=== PATIENT | male | born 1960 | race American Indian/Alaskan Native ===

== ENCOUNTER 2017-03-16 13:34 | Inpatient (IN) | payer OTHER ==
--- NOTE | 2017-03-16 14:19 | C.PDOC ---
History Of Present Illness 56 year old male presents to the ED c/o feeling depressed with SI. Symptoms began after he lost his job 3 months ago, and he admits today he was evicted from his apartment. He denies specific plan, and was referred to ER by his bilingual medical receptionist. Patient denies any physical complaints. Time Seen by Provider: 03/16/17 14:01 Chief Complaint (Nursing): Psychiatric Evaluation History Per: Patient History/Exam Limitations: no limitations Onset/Duration Of Symptoms: Days Current Symptoms Are (Timing): Still Present Suicide/Self Injury Attempted (Context): None Modifying Factor(s): Alcohol Associated Symptoms: Depression, Suicidal Thoughts. denies: Suicidal Plan Recent travel outside of the [place]: No Additional History Per: Patient Past Medical History Reviewed: Historical Data, Nursing Documentation, Vital Signs Vital Signs: Last Vital Signs Temp 98.1 F 03/16/17 16:46 Pulse 73 03/16/17 16:46 Resp 16 03/16/17 16:46 BP 126/85 03/16/17 16:46 Pulse Ox 98 03/16/17 17:08 - Medical History PMH: No Chronic Diseases Surgical History: No Surg Hx Family History: States: No Known Family Hx - Social History Hx Alcohol Use: Yes Hx Substance Use: Yes - Immunization History Hx Tetanus Toxoid Vaccination: No Hx Influenza Vaccination: No Hx Pneumococcal Vaccination: No Review Of Systems Except As Marked, All Systems Reviewed And Found Negative. Constitutional: Negative for: Fever, Chills Cardiovascular: Negative for: Chest Pain, Palpitations Respiratory: Negative for: Shortness of Breath Gastrointestinal: Negative for: Nausea, Vomiting, Abdominal Pain, Diarrhea Psych: Positive for: Depression, Suicidal ideation Physical Exam - Physical Exam Appears: Well, Non-toxic, Other (Flat affect) Skin: Normal Color, Warm, Dry, No Rash Head: Atraumatic, Normacephalic Eye(s): bilateral: Normal Inspection Oral Mucosa: Moist Cardiovascular: Rhythm Regular Respiratory: Normal Breath Sounds, No Accessory Muscle Use, No Rales, No Rhonchi , No Wheezing Gastrointestinal/Abdominal: Normal Exam, Bowel Sounds, Soft, No Tenderness Neurological/Psych: Oriented x3 ED Course And Treatment - Laboratory Results Result Diagrams: 03/16/17 14:27 03/16/17 14:27 O2 Sat by Pulse Oximetry: 98 (On RA) Pulse Ox Interpretation: Normal Progress Note: Plan: -Blood work, UA, UDS ordered and reviewed. Patient placed on 1:1 observation. 16:00 - Patient medically cleared, pending crisis eval. 16:24- Patient accepted by Dr. Grace for psychiatric admission. Disposition - Disposition Disposition: HOSPITALIZED Disposition Time: 16:24 Condition: STABLE - Clinical Impression Clinical Impression: Alcohol-induced depressive disorder with moderate or severe use disorder - Scribe Statement The provider has reviewed the documentation as recorded by the Scribe Sam Mcguire All medical record entries made by the Scribe were at my direction and personally dictated by me. I have reviewed the chart and agree that the record accurately reflects my personal performance of the history, physical exam, medical decision making, and the department course for this patient. I have also personally directed, reviewed, and agree with the discharge instructions and disposition. Decision To Admit - Pt Status Changed To: Hospital Disposition Of: Inpatient - Admit Certification Admit to Inpatient:: After my assessment, the patient will require hospitalization for at least two midnights. This is because of the severity of symptoms shown, intensity of services needed, and/or the medical risk in this patient being treated as an outpatient. - InPatient: Physician Admission Certification: I certify that this patient requires 2 or more midnights of care for the following reason:: see notes - . Bed Request Type: Psychiatry Admitting Physician: Sandee Grace Patient Diagnosis: Alcohol-induced depressive disorder with moderate or severe use disorder
[2017-03-16 14:38] LABS: HEMATOCRIT 41.2 % (35.0-51.0); MEAN CELL VOLUME 89.7 fL (80.0-94.0); MEAN CORPUSCULAR HEMOGLOBIN 30.7 pg (27.0-31.0); MEAN CORPUSCULAR HGB CONC 34.2 g/dL (33.0-37.0); MEAN PLATELET VOLUME 9.8 fL (7.2-11.7); RED CELL DISTRIBUTION WIDTH 15.3 % (11.5-14.5); WHITE BLOOD COUNT 7.7 K/uL (4.8-10.8)
[2017-03-16 14:41] LABS: RBC URINE 2 /hpf (0-3); URINE BILIRUBIN NEGATIVE (NEGATIVE); URINE BLOOD NEGATIVE (NEGATIVE); URINE COLOR Amber (YELLOW); URINE GLUCOSE (UA) NORMAL (Normal); URINE KETONE TRACE mg/dL (NEGATIVE); URINE LEUKOCYTE ESTERASE NEG Leu/uL (Negative); URINE PROTEIN NEGATIVE (NEGATIVE); WBC URINE 3 /hpf (0-5)
[2017-03-16 14:45] LABS: CHLORIDE 101 mmol/L (98-107)
[2017-03-16 14:46] LABS: POTASSIUM 3.5 mmol/L (3.6-5.2); SODIUM 132 mmol/L (132-148)
[2017-03-16 14:48] LABS: ALB/GLOB RATIO 0.8 (1.0-2.1); AST/SGOT 121 U/L (17-59); BILIRUBIN,TOTAL 1.8 mg/dL (0.2-1.3); BLOOD UREA NITROGEN 17 mg/dL (9-20); CARBON DIOXIDE 18 mmol/L (22-30); GFR AFRICAN-AMERICAN > 60; TOTAL PROTEIN 8.9 g/dL (6.3-8.3)
[2017-03-16 14:49] LABS: ALCOHOL SERUM 39 mg/dl (0-10); ALKALINE PHOSPHATASE 117 U/L (38-126); ALT/SGPT 118 U/L (21-72); CALCIUM 8.5 mg/dl (8.6-10.4); GLUCOSE,RANDOM 73 mg/dL (75-110)
--- NOTE | 2017-03-16 18:37 | PCM.BM ---
<Amy Wall - Last Filed: 03/16/17 18:34> Treatment Plan Problems - Problems identified on initial assessmt Depression Date Initiated: 03/16/17 Time Initiated: 17:30 Assessment reference: NA Status: Active Suicidal ideation Date Initiated: 03/16/17 Time Initiated: 17:30 Assessment reference: NA Status: Active Treatment assets and liabiliti Patient Assests: cooperative, ADL independent, negotiates basic needs Patient Liabilities: live alone, financial problems, substance abuse - Milieu Protocol Maintain good personal hygiene: daily Encourage regular showers, daily Remind patient to perform daily oral care, daily Assist patient to perform ADL's Conduct patient checks and document Observation sheet: Q15 minutes Maintain personal safety: every shift Educate patient to report safety concerns to staff, every shift Monitor environment for contraband/sharps Medication safety: Monitor for expected outcome, potential side effects: every shift, Assess barriers to learning: every shift, Assess readiness for medication education: every shift <Sandee Grace - Last Filed: 03/19/17 11:06> - Diagnosis (1) Major depressive disorder, recurrent Status: Acute Interventions: 03/19/17 11:06 * Assess/adjust medications daily and /or as needed * See patient on an individual basis 7x/week to assess level of depressive behaviors and stability * Discuss risks, benefits, side effects and alternatives of medications * (2) Alcohol use disorder, severe, dependence Status: Acute Interventions: 03/19/17 11:07 * Assess 7x/week regarding severity of withdrawal * Educate regarding risks, benefits, side effects and alternatives of medications * Use Motivational Interviewing for abstinence * Use CBT for relapse prevention * Medication management for withdrawal symptoms * Encourage medication assisted treatment * (3) Cocaine use disorder, severe, dependence Status: Acute Interventions: 03/19/17 11:07 * Assess 7x/week regarding severity of withdrawal * Educate regarding risks, benefits, side effects and alternatives of medications * Use Motivational Interviewing for abstinence * Use CBT for relapse prevention * Medication management for withdrawal symptoms * Encourage medication assisted treatment * <Dorothy Mccullough - Last Filed: 03/19/17 11:10> Family Contact Family involvement: Famliy/SO not involved - Goals for Treatment Patient goals for treatment: "I want to go to rehab." Discharge/Continuing Care - Education Needs Education Needs: Patient Medication, Patient Coping Skills, Patient Placement options, Patient Community resources - Discharge Discharge Criteria: Tolerates medication w/o severe side effects, No longer exhibiting s/s of withdrawal, Reduction of target symptoms Discharge to:: Substance Abuse Rehab - Treatment Team Participation Discussed with Family/SO: No Was Patient/Family/SO present at Treatment Team Meeting: Yes
[2017-03-16] MEDS ORDERED: Aluminum Hydroxide/Magnesium Hydroxide Susp (30 mL) PO PRN (19:10)
[2017-03-17] MEDS: Multiple Vitamins Tab PO SCH (09:32)
--- NOTE | 2017-03-17 10:40 | PCM.PSYCH ---
Initial Psychiatric Evaluation - Initial Psychiatric Evaluation Type of Admission: Voluntary Legal Status: Capacity Chief Complaint (in patient's own words): I was feeling depressed and suicidal.' History of Present Illness and Precipitating Events: Pt is a 56 y/o AA male who came to the due to the increasingly depressed with suicidal ideation without any plan. 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 Pt states since losing his job, he has had "spontaneous thoughts of suicide," with no specific plan. So he came to the ED to get help. Pt denies any past history of inpatient psychiatric hospitalization and denies any follow up with any psychiatrist. He denies any past history of suicidal ideation or attempt. Pt reports depressed mood, feelings of hopelessness and helplessness and worthlessness. He reports decrease sleep and poor appetite. He denies any AVH or any psychotic symptoms. Pt states his primary substances of choice are crack cocaine and alcohol. Pt last used crack cocaine yesterday, smoked an unknown amount, but used x3 days/ week. Pt last use of alcohol was today, he drinks 4 24oz "Buds" daily. Pt reports irritability and headaches but denies any other withdrawal symptoms. PMH: none reported Current Medications: Active Medications Generic Name Dose Route Start Last Admin Trade Name Freq PRN Reason Stop Dose Admin Al Hydrox/Mg Hydrox/Simethicone 30 ml 03/16/17 19:10 Maalox 30 Ml PO TID PRN Indigestion / Heartburn Clonidine HCl 0.1 mg 03/16/17 19:09 Catapres PO Q4H PRN Symptoms of alcohol withdrawl Folic Acid 1 mg 03/17/17 10:00 03/17/17 09:32 Folic Acid PO 1 mg DAILY DONAVAN Administration Loperamide HCl 2 mg 03/16/17 19:10 Imodium PO Q8 PRN Diarrhea Lorazepam 1 mg 03/16/17 19:09 Ativan PO Q4H PRN Symptoms of alcohol withdrawl Multivitamins 1 tab 03/17/17 10:00 03/17/17 09:32 Hexavitamin PO 1 tab DAILY DONAVAN Administration Ondansetron HCl 4 mg 03/16/17 19:10 Zofran Tab PO Q8 PRN Nausea/Vomiting Pneumococcal Polyvalent Vaccine 0.5 ml 03/20/17 10:00 Pneumovax 23 Vaccine IM 03/20/17 10:01 .ONCE ONE Thiamine HCl 100 mg 03/17/17 10:00 03/17/17 09:32 Vitamin B1 Tab PO 100 mg DAILY DONAVAN Administration Trazodone HCl 50 mg 03/16/17 19:09 Desyrel PO HS PRN Insomnia Past Psychiatric History - Past Psychiatric History Previous Treatment History: None Pertinent Medical Hx (Current Medical&Sleep Prob, Allergies): Allergies Allergy/AdvReac Type Severity Reaction Status Date / Time No Known Allergies Allergy Verified 03/16/17 13:49 No Known Home Med 03/16/17 Review of Systems - Review of Systems All systems: reviewed and no additional remarkable complaints except - Psychiatric Psychiatric: Anxiety, Depression, Irritability, Suicidal Ideation Mental Status Examination - Personal Presentation Personal Presentation: Looks stated age - Affect Affect: Constricted, Depressed - Motor Activity Motor Activity: Calm - Reliability in Providing Information Reliability in Providing Information: Good - Speech Speech: Organized - Mood Mood: Depressed, Anxious - Formal Thought Process Formal Thought Process: No Impairment - Obsessions/Compulsions Obsessions: No Compulsions: No - Cognitive Functions Orientation: Person, Place, Situation, Time Sensorium: Alert Attention/Concentration: Attentive Abstract Thinking: [place] Estimate of Intelligence: Below average Judgement: Imparied, as evidence by: Poor judgement, Imparied, as evidence by: Lack of insight into illness - Risk Risk: Suicidal, Diminished functioning - Limitations Limitations: Living alone DSM 5 DX - DSM 5 DSM 5 Diagnosis: Major depressive disorder recurrent severe without psychotic features Alcohol use disorder severe Alcohol withdrawal Cocaine use disorder severe - Recommended/Plan of Treatment Treatment Recommendations and Plan of Treatment: Major depressive disorder recurrent severe without psychotic features CBT Psychoeducation Supportive therapy, group therapy, individual therapy Neurontin 300 mg by mouth TID Trazodone 50 mg by mouth daily at bedtime Alcohol use disorder severe Alcohol withdrawal CBT Psychoeducation Supportive therapy, individual therapy Use [place] for abstinence Clonidine when necessary Ativan prn MVI/FA/Thiamine Cocaine use disorder severe CBT Psychoeducation Supportive therapy, individual therapy Use [place] for abstinence - Smoking Cessation Smoking Cessation Initiated: No
[2017-03-18 09:15] VITALS: O2SAT 99
[2017-03-18] MEDS: Multiple Vitamins Tab PO SCH (09:43)
--- NOTE | 2017-03-18 12:04 | PCM.PYCHPN ---
Psychiatric Progress Note - Psychiatric Progress Note Patient seen today, length of contact: 15 min Patient Chief Complaint: I was feeling depressed and suicidal.' Problems Identified/Issues Discussed: Patient seen and evaluated, chart reviewed and discussed with the nurse. Patient remained isolated, confined and withdrawn. He reports depressed mood and some feelings of hopelessness and helplessness. He is taking medication and denies any side effects. He needs more time for stabilization. Supportive therapy and psychoeducation were given. Medication Change: No Medical Record Reviewed: Yes Mental Status Examination - Cognitive Function Orientation: Person, Place, Situation, Time Memory: Intact Attention: WNL Concentration: Poor Association: WNL Fund of Knowledge: Poor - Mood Mood: Depressed, Anxious - Affect Affect: Constricted, Depressed - Speech Speech: Soft - Formal Thought Process Formal Thought Process: No Impairment - Suicidal Ideation Suicidal Ideation: No - Homicidal Ideation Homicidal Ideation: No Goal/Treatment Plan - Goal/Treatment Plan Need for Continued Stay: Severe depression anxiety, Severe functional impairment Progress Toward Problem(s) and Goals/Treatment Plan: Major depressive disorder recurrent severe without psychotic features CBT Psychoeducation Supportive therapy, group therapy, individual therapy Neurontin 300 mg by mouth TID Trazodone 50 mg by mouth daily at bedtime Alcohol use disorder severe Alcohol withdrawal CBT Psychoeducation Supportive therapy, individual therapy Use [place] for abstinence Clonidine when necessary Ativan prn MVI/FA/Thiamine Cocaine use disorder severe CBT Psychoeducation Supportive therapy, individual therapy Use [place] for abstinence - Smoking Cessation Smoking Cessation Initiated: No
[2017-03-19] MEDS: Multiple Vitamins Tab PO SCH (11:09)
--- NOTE | 2017-03-19 11:17 | PCM.PYCHPN ---
Psychiatric Progress Note - Psychiatric Progress Note Patient seen today, length of contact: 15 min Patient Chief Complaint: I am feeling little better.' Problems Identified/Issues Discussed: Patient seen and evaluated, chart reviewed and discussed with the nurse. Today pt reports some improvement in his mood and some improvement in the feelings of hopelessness and helplessness. He still reports poor sleep. He remained isolated, confined and withdrawn. . Patient reports some withdrawal symptoms including headaches, anxiety and sweating. He is taking medication and denies any side effects. He needs more time for stabilization. Supportive therapy and psychoeducation were given. Medication Change: Yes (start zoloft) Medical Record Reviewed: Yes Mental Status Examination - Cognitive Function Orientation: Person, Place, Situation, Time Memory: Intact Attention: WNL Concentration: Poor Association: WNL Fund of Knowledge: Poor - Mood Mood: Depressed, Anxious - Affect Affect: Constricted, Depressed - Speech Speech: Soft - Formal Thought Process Formal Thought Process: No Impairment - Suicidal Ideation Suicidal Ideation: No - Homicidal Ideation Homicidal Ideation: No Goal/Treatment Plan - Goal/Treatment Plan Need for Continued Stay: Severe depression anxiety, Severe functional impairment Progress Toward Problem(s) and Goals/Treatment Plan: Major depressive disorder recurrent severe without psychotic features CBT Psychoeducation Supportive therapy, group therapy, individual therapy Neurontin 300 mg by mouth TID Trazodone 50 mg by mouth daily at bedtime Alcohol use disorder severe Alcohol withdrawal CBT Psychoeducation Supportive therapy, individual therapy Use [place] for abstinence Clonidine when necessary Ativan prn MVI/FA/Thiamine Cocaine use disorder severe CBT Psychoeducation Supportive therapy, individual therapy Use [place] for abstinence - Smoking Cessation Smoking Cessation Initiated: No
[2017-03-20] MEDS ORDERED: Influenza Vaccine 60 mcg/0.5 mL SYR (4YR UP) IM ONE (10:00)
[2017-03-20] MEDS ORDERED: Pneumococcal 23-Valent Vaccine IM ONE (10:00)
--- NOTE | 2017-03-20 10:41 | PCM.PYCHPN ---
Psychiatric Progress Note - Psychiatric Progress Note Patient seen today, length of contact: 15 min Patient Chief Complaint: I was feeling depressed and suicidal.' Problems Identified/Issues Discussed: The pt is seen, chart reviewed, case discussed with staff. The pt is compliant with medications and reports no side-effects. Pt. still reports depressed mood and reports poor sleep. His symptoms are improving but needs more time to stabilize. After care discussed, support and psychoeducation given. Medication Change: No Medical Record Reviewed: Yes Mental Status Examination - Cognitive Function Orientation: Person, Place, Situation, Time Memory: Intact Attention: WNL Concentration: Poor Association: WNL Fund of Knowledge: Poor - Mood Mood: Depressed, Anxious - Affect Affect: Constricted, Depressed - Speech Speech: Soft - Formal Thought Process Formal Thought Process: No Impairment - Suicidal Ideation Suicidal Ideation: No - Homicidal Ideation Homicidal Ideation: No Goal/Treatment Plan - Goal/Treatment Plan Need for Continued Stay: Severe depression anxiety, Severe functional impairment Progress Toward Problem(s) and Goals/Treatment Plan: Major depressive disorder recurrent severe without psychotic features CBT Psychoeducation Supportive therapy, group therapy, individual therapy Neurontin 300 mg by mouth TID Trazodone 50 mg by mouth daily at bedtime Alcohol use disorder severe Alcohol withdrawal CBT Psychoeducation Supportive therapy, individual therapy Use [place] for abstinence Clonidine when necessary Ativan prn MVI/FA/Thiamine Cocaine use disorder severe CBT Psychoeducation Supportive therapy, individual therapy Use [place] for abstinence - Smoking Cessation Smoking Cessation Initiated: No
[2017-03-20] MEDS: Multiple Vitamins Tab PO SCH (10:53)
[2017-03-21] MEDS: Multiple Vitamins Tab PO SCH (09:50)
--- NOTE | 2017-03-21 11:44 | PCM.PYCHPN ---
Psychiatric Progress Note - Psychiatric Progress Note Patient seen today, length of contact: 17 min Patient Chief Complaint: I am feeling little better' Problems Identified/Issues Discussed: The pt is seen, chart reviewed, case discussed with staff. The pt is compliant with medications and reports no side-effects. Pt. still reports depressed mood and reports poor sleep. His symptoms are improving but needs more time to stabilize. After care discussed, support and psychoeducation given. Medication Change: No Medical Record Reviewed: Yes Mental Status Examination - Cognitive Function Orientation: Person, Place, Situation, Time Memory: Intact Attention: WNL Concentration: Poor Association: WNL Fund of Knowledge: Poor - Mood Mood: Depressed, Anxious - Affect Affect: Constricted, Depressed - Speech Speech: Soft - Formal Thought Process Formal Thought Process: No Impairment - Suicidal Ideation Suicidal Ideation: No - Homicidal Ideation Homicidal Ideation: No Goal/Treatment Plan - Goal/Treatment Plan Need for Continued Stay: Severe depression anxiety, Severe functional impairment Progress Toward Problem(s) and Goals/Treatment Plan: Major depressive disorder recurrent severe without psychotic features CBT Psychoeducation Supportive therapy, group therapy, individual therapy Neurontin 300 mg by mouth TID Trazodone 50 mg by mouth daily at bedtime Alcohol use disorder severe Alcohol withdrawal CBT Psychoeducation Supportive therapy, individual therapy Use [place] for abstinence Clonidine when necessary Ativan prn MVI/FA/Thiamine Cocaine use disorder severe CBT Psychoeducation Supportive therapy, individual therapy Use [place] for abstinence - Smoking Cessation Smoking Cessation Initiated: No
[2017-03-22] MEDS: Multiple Vitamins Tab PO SCH (09:59)
[2017-03-22 20:06] LABS: HEMATOCRIT 41.5 % (35.0-51.0); MEAN CELL VOLUME 89.7 fL (80.0-94.0); MEAN CORPUSCULAR HEMOGLOBIN 30.6 pg (27.0-31.0); MEAN CORPUSCULAR HGB CONC 34.1 g/dL (33.0-37.0); MEAN PLATELET VOLUME 9.8 fL (7.2-11.7); RED CELL DISTRIBUTION WIDTH 15.2 % (11.5-14.5); WHITE BLOOD COUNT 7.1 K/uL (4.8-10.8)
--- NOTE | 2017-03-22 21:48 | PCM.PYCHPN ---
Psychiatric Progress Note - Psychiatric Progress Note Patient seen today, length of contact: 15 min Patient Chief Complaint: I was feeling depressed and suicidal.' Problems Identified/Issues Discussed: The pt is seen, chart reviewed, case discussed with staff. The pt is compliant with medications and reports no side-effects. Pt. still reports depressed mood and reports poor sleep. His symptoms are improving but needs more time to stabilize. After care discussed, support and psychoeducation given. Medication Change: Yes (start zoloft) Medical Record Reviewed: Yes Mental Status Examination - Cognitive Function Orientation: Person, Place, Situation, Time - Mood Mood: Depressed, Anxious - Affect Affect: Constricted, Depressed - Speech Speech: Soft - Formal Thought Process Formal Thought Process: No Impairment - Suicidal Ideation Suicidal Ideation: No - Homicidal Ideation Homicidal Ideation: No Goal/Treatment Plan - Goal/Treatment Plan Need for Continued Stay: Severe depression anxiety, Severe functional impairment Progress Toward Problem(s) and Goals/Treatment Plan: Major depressive disorder recurrent severe without psychotic features CBT Psychoeducation Supportive therapy, group therapy, individual therapy Neurontin 300 mg by mouth TID Trazodone 50 mg by mouth daily at bedtime Alcohol use disorder severe Alcohol withdrawal CBT Psychoeducation Supportive therapy, individual therapy Use [place] for abstinence Clonidine when necessary Ativan prn MVI/FA/Thiamine Cocaine use disorder severe CBT Psychoeducation Supportive therapy, individual therapy Use [place] for abstinence
[2017-03-23] MEDS: Multiple Vitamins Tab PO SCH (09:47)
--- NOTE | 2017-03-23 12:45 | PCM.PYCHPN ---
Psychiatric Progress Note - Psychiatric Progress Note Patient seen today, length of contact: 15 min Patient Chief Complaint: I want to go to the rehab.' Problems Identified/Issues Discussed: Patient seen and evaluated, chart reviewed and discussed with the nurse. Pt reports improvement in is mood and improvement in the feelings of hopelessness and helplessness. He has stated coming out of his room. He reports that he wants to go the inpatient rehab from . Patient reports improvement in the withdrawal symptoms. He is taking medication and denies any side effects. He needs more time for stabilization. Supportive therapy and psychoeducation were given. Medication Change: Yes (start zoloft) Medical Record Reviewed: Yes Mental Status Examination - Cognitive Function Orientation: Person, Place, Situation, Time Memory: Intact Attention: WNL Concentration: Poor Association: WNL Fund of Knowledge: Poor - Mood Mood: Anxious - Affect Affect: Constricted, Depressed - Speech Speech: Soft - Formal Thought Process Formal Thought Process: No Impairment - Suicidal Ideation Suicidal Ideation: No - Homicidal Ideation Homicidal Ideation: No Goal/Treatment Plan - Goal/Treatment Plan Need for Continued Stay: Severe depression anxiety, Severe functional impairment Progress Toward Problem(s) and Goals/Treatment Plan: Major depressive disorder recurrent severe without psychotic features CBT Psychoeducation Supportive therapy, group therapy, individual therapy Neurontin 300 mg by mouth TID Seroquel 100 mg by mouth daily at bedtime Zoloft 100 mg PO Daily Alcohol use disorder severe Alcohol withdrawal CBT Psychoeducation Supportive therapy, individual therapy Use [place] for abstinence Clonidine when necessary Ativan prn MVI/FA/Thiamine Cocaine use disorder severe CBT Psychoeducation Supportive therapy, individual therapy Use [place] for abstinence - Smoking Cessation Smoking Cessation Initiated: No
[2017-03-24] MEDS: Multiple Vitamins Tab PO SCH (10:27)
--- NOTE | 2017-03-24 19:43 | PCM.PYCHPN ---
Psychiatric Progress Note - Psychiatric Progress Note Patient seen today, length of contact: 15 min Patient Chief Complaint: "I'm feeling better" Problems Identified/Issues Discussed: Patient was seen and evaluated, chart reviewed and nurse input received. He has had no issue last night. Case was discussed with the nurse. Pt reports improvement in is mood and improvement in the feelings of hopelessness and helplessness. He has stated coming out of his room. He reports that he wants to go the inpatient rehab from . Patient reports improvement in his withdrawal symptoms. He is taking medication and denies any side effects. He needs more time for stabilization DSM 5 Symptoms Update: Major depressive disorder recurrent severe without psychotic features Medication Change: Yes Medical Record Reviewed: Yes Mental Status Examination - Cognitive Function Orientation: Person, Place, Situation, Time Memory: Intact Attention: WNL Concentration: Poor Association: WNL Fund of Knowledge: Poor - Mood Mood: Anxious - Affect Affect: Constricted, Depressed - Speech Speech: Soft - Formal Thought Process Formal Thought Process: No Impairment - Suicidal Ideation Suicidal Ideation: No - Homicidal Ideation Homicidal Ideation: No Goal/Treatment Plan - Goal/Treatment Plan Need for Continued Stay: Severe depression anxiety, Discharge may exacerbated symptoms, Severe functional impairment Progress Toward Problem(s) and Goals/Treatment Plan: CBT Psychoeducation Supportive therapy, group therapy, individual therapy Neurontin 300 mg by mouth TID Seroquel 100 mg by mouth daily at bedtime Zoloft 100 mg PO Daily Alcohol use disorder severe Alcohol withdrawal CBT Psychoeducation Supportive therapy, individual therapy Use OR for abstinence Clonidine when necessary Ativan prn MVI/FA/Thiamine Cocaine use disorder severe CBT Psychoeducation Supportive therapy, individual therapy Use OR for abstinence Estimated Date of D/C: 03/29/17 - Smoking Cessation Smoking Cessation Initiated: Yes
[2017-03-25] MEDS: Multiple Vitamins Tab PO SCH (10:24)
--- NOTE | 2017-03-25 18:47 | PCM.PYCHPN ---
Psychiatric Progress Note - Psychiatric Progress Note Patient seen today, length of contact: 16 min Patient Chief Complaint: "I'm feeling better" Problems Identified/Issues Discussed: Patient was seen and evaluated, chart reviewed and nurse input received. He has had no issue last night. Case was discussed with the nurse. Pt reports improvement in is mood and improvement in the feelings of hopelessness and helplessness. He has stated coming out of his room. He reports that he wants to go the inpatient rehab from . Patient reports improvement in his etoh withdrawal symptoms. He is taking medication and denies any side effects. He needs more time for stabilization DSM 5 Symptoms Update: MDD recurrent w/out psychosis etoh dependence, withdrawal, cocaine use d/o Medication Change: Yes (start zoloft) Medical Record Reviewed: Yes Mental Status Examination - Cognitive Function Orientation: Person, Place, Situation, Time Memory: Intact Attention: WNL Concentration: WNL Association: WN Fund of Knowledge: [facility] Decription of patient's judgement and insights: fair/fair - Mood Mood: Depressed, Anxious - Affect Affect: Constricted, Depressed - Speech Speech: Soft - Formal Thought Process Formal Thought Process: No Impairment Psychotic Thoughts and Behaviors: denied - Suicidal Ideation Suicidal Ideation: No - Homicidal Ideation Homicidal Ideation: No Goal/Treatment Plan - Goal/Treatment Plan Need for Continued Stay: Severe depression anxiety, Severe functional impairment Progress Toward Problem(s) and Goals/Treatment Plan: CBT Psychoeducation Supportive therapy, group therapy, individual therapy Neurontin 300 mg by mouth TID Seroquel 100 mg by mouth daily at bedtime Zoloft 100 mg PO Daily Alcohol use disorder severe Alcohol withdrawal CBT Psychoeducation Supportive therapy, individual therapy Use [place] for abstinence Clonidine when necessary Ativan prn MVI/FA/Thiamine Cocaine use disorder severe CBT Psychoeducation Supportive therapy, individual therapy Use [place] for abstinence Estimated Date of D/C: 03/29/17
[2017-03-26 07:00] VITALS: TEMP 97.8
[2017-03-26] MEDS: Multiple Vitamins Tab PO SCH (10:01)
--- NOTE | 2017-03-26 10:20 | PCM.PYCHPN ---
Psychiatric Progress Note - Psychiatric Progress Note Patient seen today, length of contact: 16 min Patient Chief Complaint: I was feeling depressed and suicidal.' Problems Identified/Issues Discussed: The pt is seen, chart reviewed, case discussed with staff. The pt is compliant with medications and reports no side-effects. Pt. still reports depressed mood and reports poor sleep. His symptoms are improving but needs more time to stabilize. After care discussed, support and psychoeducation given. Medication Change: Yes (start zoloft) Medical Record Reviewed: Yes Mental Status Examination - Cognitive Function Orientation: Person, Place, Situation, Time Memory: Intact Attention: WNL Concentration: WNL Association: WN Fund of Knowledge: WN - Mood Mood: Depressed, Anxious - Affect Affect: Constricted, Depressed - Speech Speech: Soft - Formal Thought Process Formal Thought Process: No Impairment - Suicidal Ideation Suicidal Ideation: No - Homicidal Ideation Homicidal Ideation: No Goal/Treatment Plan - Goal/Treatment Plan Need for Continued Stay: Severe depression anxiety, Severe functional impairment Progress Toward Problem(s) and Goals/Treatment Plan: Major depressive disorder recurrent severe without psychotic features CBT Psychoeducation Supportive therapy, group therapy, individual therapy Neurontin 300 mg by mouth TID Trazodone 50 mg by mouth daily at bedtime Alcohol use disorder severe Alcohol withdrawal CBT Psychoeducation Supportive therapy, individual therapy Use [place] for abstinence Clonidine when necessary Ativan prn MVI/FA/Thiamine Cocaine use disorder severe CBT Psychoeducation Supportive therapy, individual therapy Use [place] for abstinence Estimated Date of D/C: 03/29/17
--- NOTE | 2017-03-27 08:56 | PCM.PYCHDC ---
Mental Status Examination - Mental Status Examination Orientation: Person, Place, Situation, Time Memory: Intact Mood: Neutral Affect: Constricted Speech: Soft Attention: WNL Concentration: WNL Association: WNL Fund of Knowledge: WNL Formal Thought Process: No Impairment Description of patient's judgement and insight: good, fair Psychotic Thoughts and Behaviors: denies any AVH Suicidal Ideation: No Current Homicidal Ideation?: No Discharge Summary - Discharge Note Reason for Hospitalization: Pt is a 56 y/o AA male who came to the due to the increasingly depressed with suicidal ideation without any plan. 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 Pt states since losing his job, he has had "spontaneous thoughts of suicide," with no specific plan. So he came to the ED to get help. Pt denies any past history of inpatient psychiatric hospitalization and denies any follow up with any psychiatrist. He denies any past history of suicidal ideation or attempt. Pt reports depressed mood, feelings of hopelessness and helplessness and worthlessness. He reports decrease sleep and poor appetite. He denies any AVH or any psychotic symptoms. Pt states his primary substances of choice are crack cocaine and alcohol. Pt last used crack cocaine yesterday, smoked an unknown amount, but used x3 days/ week. Pt last use of alcohol was today, he drinks 4 24oz "Buds" daily. Pt reports irritability and headaches but denies any other withdrawal symptoms. Consultations:: List each consultation separately and include: 1. Reason for request. 2. Findings. 3. Follow-up Summary of Hospital Course include:: 1. Description of specific treatment plan utilized for patients during their course of treatmen. 2. Summarize the time- course for resolution of acute symptoms and/or regressed behaviors. 3. Describe issues identified and worked on during hospitalization. 4. Describe medication utilized. 5. Describe medical problems identified and treated. 6. Reassessment of suicide risk Summary of Hospital Course: Patient was admitted to psychiatric floor on 03/16 for depressive and anxiety symptoms as well as to detox from alcohol. The pt was started on his antidepressants and detox medications. Support therapy, psychotherapy, and psychoeducation were also provided. For his detox from alcohol he was started on ativan taper which he completed successfully without any complications. The patient attended groups and activities, as well as milieu therapy. Patient denied any feelings of hopelessness, helplessness, and worthlessness, denied any problem with the sleep or appetite, denied suicidal ideation or homicidal ideation. Pt denied any auditory or visual hallucinations. Some changes were made in his current medications and patient was discharged on following medications. He tolerated these medications very well and denied any side effects. All the risks and benefits of medications were discussed and the patient understood and agreed. After care discussed and the patient agreed to go to the inpt rehab, '[facility] in [place]'. - Diagnosis (1) Major depressive disorder, recurrent Status: Acute (2) Alcohol use disorder, severe, dependence Status: Acute (3) Cocaine use disorder, severe, dependence Status: Acute - Final Diagnosis (DSM 5) Condition upon Discharge: STABLE DSM 5: Major depressive disorder recurrent severe without psychotic features Alcohol use disorder severe Cocaine use disorder severe Disposition: HOME/ ROUTINE Follow-up Treatment Plan: Education: Pt was educated and counseled about the risks and benefits of taking and not taking medications. Pt was educated and counseled about the risks of drinking and abusing drugs. Pt was educated and counseled to go to the ER or call 911 if pt develop suicidal ideation or homicidal ideation, worsening of symptoms or severe side effects of the meds. Prescriptions/Medication Reconciliation: Gabapentin [Neurontin] 300 mg PO BID #60 cap QUEtiapine [Seroquel] 100 mg PO HS #30 tab Sertraline [Zoloft] 100 mg PO DAILY #30 tab - Smoking Cessation Smoking Cessation Medication prescribed: No - Antipsychotic Medications Pt discharged on 2 or more routine antipsychotic medications: No
[2017-03-27] MEDS: Multiple Vitamins Tab PO SCH (09:40)
[2017-03-27 16:15] VITALS: BP 140/90; PULSE 67; RESP 12
== END 2017-03-27 17:10 | disposition home or self-care (01) | DRG 425 ==
LOC: C.ER 13:34 → C.5E 16:24
PROVIDERS: ADMIT Psychiatry & Neurology Psychiatry; ATTEND Psychiatry & Neurology Psychiatry
DX: R45.851 Suicidal ideations (principal); F33.2 Major depressive disorder, recurrent severe without psychotic features; F10.239 Alcohol dependence with withdrawal, unspecified; F14.20 Cocaine dependence, uncomplicated; F10.24 Alcohol dependence with alcohol-induced mood disorder; R63.0 Anorexia; Z59.0 Homelessness; Y90.1 Blood alcohol level of 20-39 mg/100 ml; F41.9 Anxiety disorder, unspecified